=== PATIENT | male | born 1980 | race Caucasian/White ===

== ENCOUNTER 2017-10-12 08:54 | Emergency (ER) | payer SELFPAY ==
[~2017-10-12] VITALS: Ht 182.9 cm; Wt 80.0 kg
[~2017-10-12 08:54] MED LIST: AUGMENTIN875TAB PO; BACTROBAN2 % EX; DOXYCYCL HYC100 M4 PO; LORTAB 10 PO; NO; NO MEDS; ULTRAM50 MG OR
[2017-10-12 09:42] LABS: INFLUENZA A NONE DETECTED (NONE DETECT); INFLUENZA B POSITIVE (NONE DETECT)
[2017-10-12] MEDS ORDERED: TAM75CAP PO (09:49)
[2017-10-12 10:10] VITALS: BP 127/69
== END 2017-10-12 10:10 | disposition home or self-care (01) | DRG 153 ==
LOC: ED 08:54
PROVIDERS: Family Medicine
DX: J11.1 Influenza due to unidentified influenza virus with other respiratory manifestations (principal)